=== PATIENT | male | born 1995 | race Caucasian/White ===

== ENCOUNTER 2023-01-10 15:56 | Emergency (ER) | payer BC, SELFPAY ==
[2023-01-10 15:56] VITALS: BP 137/100; PULSE 106; RESP 15; TEMP 36.7; O2SAT 98; BMI 30.6
--- NOTE | 2023-01-10 16:00 | NURSING ---
NO OLD EKGS
--- NOTE | 2023-01-10 17:06 | EKG12_ITS ---
Test Reason : CP Blood Pressure : / mmHG Vent. Rate : 100 BPM Atrial Rate : 100 BPM P-R Int : 140 ms QRS Dur : 084 ms QT Int : 336 ms P-R-T Axes : 027 046 039 degrees QTc Int : 433 ms Normal sinus rhythm Normal ECG Confirmed by GAVI LORA, MARGIE ([id number]), managing editor KAILEE MCDOWELL ([id number]) on 01/11/2023 10:27:02 AM Referred By: LISA/ANNALEE Confirmed By:MARGIE GATICA MD
[2023-01-10] MEDS: Aspirin 81 MG TAB.CHEW 324 MG PO (17:21)
--- NOTE | 2023-01-10 17:25 | RAD_ITS ---
INDICATION: chest pain EXAMINATION/TECHNIQUE: X-RAY - XR Chest 1 View COMPARISON: FINDINGS: LINES/DEVICES: None. LUNGS: No consolidation, edema or effusion. No pneumothorax. MEDIASTINUM AND CARDIOVASCULAR STRUCTURES: Cardiac silhouette not enlarged. Central airways and mediastinal contour are unremarkable. BONES AND SOFT TISSUES: Unremarkable. RAD/Chest 1 View (Portable) IMPRESSION: No radiographic evidence of acute cardiopulmonary disease. Electronically Signed: Adrianne Whitney MD at 17:50 EDT Reading Location ID and State: [id number] / Tel , Service support ,
[2023-01-10 17:41] LABS: Absolute Lymphocyte Count 3.52 X10^3/uL (0.83-4.51); Absolute Neutrophil Count 7.5 X10^3/uL (2.0-7.7); Basophil# 0.06 X10^3/uL; Basophil% 0.5 % (0-1); Eosinophil# 0.07 X10^3/uL; Eosinophils% 0.6 % (0-5); Hematocrit 46.2 % (40-54); Hemoglobin 15.4 g/dL (13.0-16.5); Lymphocyte # 3.52 X10^3/ul (0.83-4.51); Mean Corp Hgb Conc 33.3 g/dL (32-36); Mean Corpuscular Hgb 28.1 pg (27.0-32.0); Mean Corpuscular Volume 84.3 fL (80-94); Mean Platelet Vol. 11.4 fl (6.2-12.0); Monocyte# 0.95 X10^3/uL; Monocyte% 7.8 % (0-10); NRBC Flagged by Analyzer 0 % (0-5); Neutrophil % 61.8 % (47-70); Platelet Count 338 K/mm3 (150-450); RBC Distribution Width CV 12.4 % (11.6-14.6); RBC Distribution Width SD 37.9 fl (35.1-43.9); Red Blood Count 5.48 M/mm3 (4.6-6.2); White Blood Count 12.1 K/mm3 (4.4-11.0)
[2023-01-10 17:51] LABS: Anion Gap 5 (5-15); BUN 15 mg/dL (7-18); BUN/Creat Ratio 10.8 RATIO (10-20); Calcium,Total 9.2 mg/dL (8.5-10.1); Chloride 105 mmol/L (98-107); Creatinine, Serum 1.39 mg/dL (0.70-1.30); EST Glomerular Filtration Rate 65 mL/min (>60); Est Glom Filt Rate - Afr Amer 79 mL/min (>60); Estimated Creatinine Clearance 72.67 ml/min; Glucose 94 mg/dL (74-106); Sodium Level 137 mmol/L (136-145); Troponin-I HS (w/2H Reflex) < 3 pg/mL (3.0-78.0)
[2023-01-10 19:00] VITALS: BP 140/90; PULSE 63; RESP 16; O2SAT 98
--- NOTE | 2023-01-10 19:02 | ED.VIS.CHEST ---
HPI History of Present Illness Chief Complaint: Chest Pain Informant: patient Narrative Narrative: Patient is a 27-year-old male with no known past medical history presenting with chest pain. 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 States it radiate to his arm. The pain is been intermittent since. When he was driving home from work he started feel lightheaded and decided come to the emergency room. Currently does not have any chest pain. Denies any shortness of breath or difficulty breathing. Denies any swelling of his legs. Denies a history of PE or DVT. He does have a significant family history of coronary artery disease, he states his cousin had a heart attack at age 37 and his maternal great grandfather had a heart attack in his 40s. Patient denies any tobacco use. He states he drinks 4-5 beers a week. No other complaints or concerns at this time. [facility] Home Medications NK 01/10/23 [History Last Taken Unknown] Allergy/AdvReac Type Severity Reaction Status Date / Time No Known Allergies Allergy Verified 01/10/23 15:58 Social History Smoking Status: Never smoker ROS ROS ED Constitutional Constitutional ED: Denies chills or fever(s) Cardiovascular Cardiovascular: Reports as per HPI and chest pain; Denies palpitations Respiratory/Chest Respiratory/Chest: Denies cough or dyspnea Gastrointestinal Gastrointestinal: Denies nausea Musculoskeletal Musculoskeletal: Denies myalgias Integumentary Reports other Details: sun burn ; Denies rash Neurologic Neurologic: Denies headache(s) or weakness Psychiatric Psychiatric: Denies anxiety EXAM Physical Exam Const Vital Signs: 01/10/23 15:56 01/10/23 17:07 01/10/23 17:07 Temperature 98.1 F Temperature Source Temporal Pulse Rate 106 H Respiratory Rate 15 Respiratory Effort Normal Respiratory Pattern Normal Blood Pressure 137/100 H Blood Pressure Mean 112 Pulse Ox 98 Oxygen Delivery Method Room Air Room Air 01/10/23 19:00 01/10/23 20:00 Temperature Temperature Source Pulse Rate 63 60 Respiratory Rate 16 15 Respiratory Effort Respiratory Pattern Blood Pressure 140/90 H 136/83 H Blood Pressure Mean 106 100 Pulse Ox 98 98 Oxygen Delivery Method Room Air Room Air Positive well nourished and well developed General Appearance ED: well developed and NAD HEENT Reports moist mucous membranes normocephalic and atraumatic Eyes PERRL Neck supple and no JVD Chest Wall inspection of chest normal and palpation of chest normal Resp normal respiratory effort and clear to auscultation bilaterally Cardio regular rate, regular rhythm and no murmurs Peripheral Pulses: pulses 2+ throughout GI normal to inspection, nondistended, normoactive bowel sounds and soft to palpation Extremity normal to inspection General Extremety ED: Negative for edema General Extremity: Negative for edema Neuro oriented x3 Sensorium / Orientation: awake and alert Psych mental status grossly normal Skin no rashes or lesions noted and no wounds Skin Narrative: Healing sunburn on the back Heart Score History: Slightly/Non-Suspicious ECG: Normal Age: </= 45 years Risk Factors: 1 or 2 Risk Factors Troponin: </= Normal Limit Score: 1 MDM MDM MDM Narrative Medical decision making narrative: Evaluation onset of chest discomfort. Patient is nontoxic in no acute distress. Vital signs are normal. EKG is normal sinus rhythm with no ischemic changes. He currently is on any pain on my evaluation. Work-up is largely unremarkable. He is mildly tachycardic but otherwise low risk of pulmonary emboli. D-dimer is normal. Do not think he requires a CTA. He does have a mild leukocytosis 12.1 of uncertain clinical significance. Chest x-ray reviewed by myself as well as radiology does not show any acute infiltrate. Is not having any respiratory symptoms. Patient has a significant family history of coronary artery disease but she had a younger age and is counseled to follow-up outpatient for further cardiac evaluation. He did have a creatinine that is mildly elevated at 1.39 however he is quite muscular. He is given IV fluids in the ER. Patient be discharged home with outpatient follow-up. He verbalizes agreement understand this plan. Discharged home in stable condition. Exact cause of his chest pain is not clear but have a low suspicion for ACS, myocarditis, pericarditis, pulmonary bullae or other more serious causes. Lab Data Labs: Laboratory Results - last 24 hr 01/10/23 01/10/23 01/10/23 17:20 19:15 20:10 WBC 12.1 H RBC 5.48 Hgb 15.4 Hct 46.2 MCV 84.3 MCH 28.1 MCHC 33.3 RDW Std Deviation 37.9 RDW Coeff of Amish 12.4 Plt Count 338 MPV 11.4 Immature Gran % (Auto) 0.300 Neut % (Auto) 61.8 Lymph % (Auto) 29.0 Toole % (Auto) 7.8 Eos % (Auto) 0.6 Baso % (Auto) 0.5 Absolute Neuts (auto) 7.5 Absolute Lymphs (auto) 3.52 Nucleated RBC % 0 D-Dimer Quant (PE/DVT) < 0.27 L Sodium 137 Potassium 4.0 Chloride 105 Carbon Dioxide 27.0 Anion Gap 5 BUN 15 Creatinine 1.39 H Estim Creat Clear Calc 72.67 Est GFR (MDRD) Af Amer 79 Est GFR (MDRD) Non-Af 65 BUN/Creatinine Ratio 10.8 Glucose 94 Calcium 9.2 Troponin I High Sens < 3 L < 3 L Radiography Diagnostic Testing: Clinical Impression(s) from Imaging Studies Chest X-Ray 01/10/23 17:25 IMPRESSION: No radiographic evidence of acute cardiopulmonary disease. Electronically Signed: Adrianne Whitney MD at 17:50 EDT Reading Location ID and State: [id number] / Tel , Service support , Rhythm Strip Rhythm Strip: Sinus Rhythm Rate: 100 Ectopy: None EKG Initial EKG: Attestation: I personally reviewed and interpreted this EKG as follows: Interpretation: Sinus Rhythm Comments: Normal sinus rhythm at a rate of 100 bpm Normal axis Normal intervals Normal ST segments Discharge Plan Triage Chief Complaint: Chest Pain ED Provider: Cookie Moreira Dx/Rx/DC Orders Clinical Impression: Chest pain Instructions: ED Chest Pain, Noncardiac Prescriptions: No Action NK Primary Care Provider: Pari Aguilar Referrals: Pari Aguilar, [facility] [Primary Care Provider] - Activity Restrictions/Additional Instructions: Your work-up today was largely normal. He did have some findings of dehydration and given IV fluids in the ER. Your heart work-up did not show any signs of acute distress, heart attack or pulmonary emboli. You are safe to go home and follow-up outpatient with your primary care provider. Disposition Disposition: Home, Self Care
[2023-01-10] MEDS: 0.9% Normal Saline 1,000 ML 999 ML IV (19:07)
[2023-01-10 19:29] LABS: Reflex Troponin-HS? (from REC) Y
[2023-01-10 20:00] VITALS: BP 136/83; PULSE 60; RESP 15; O2SAT 98
[2023-01-10 20:14] LABS: D-Dimer Quantitative (DVT/PE) < 0.27 FEU/ug/m (0.27-0.49)
[2023-01-10 20:32] LABS: Troponin-I HS < 3 pg/mL (3.0-78.0)
[2023-01-10 21:03] VITALS: BP 129/82; PULSE 60; RESP 17; O2SAT 97
== END 2023-01-10 21:18 | disposition home or self-care (01) ==
PROVIDERS: Emergency Provider Emergency Medicine; PCP Nurse Practitioner Family; Visit Provider Emergency Medicine
DX: R07.9 Chest pain, unspecified (principal)
CPT/HCPCS: 71045; 80048; 84484; 85025; 85379; 93005; 99285; J7030